=== PATIENT | male | born 1965 | race Caucasian/White ===

== ENCOUNTER 2022-09-08 10:36 | Outpatient (CLI) | payer OTHER, SELFPAY ==
[2022-09-08 19:14] LABS: Chloride* 105 mmol/L (96-114); Potassium* 4.7 mmol/L (3.6-5.1); Sodium* 140 mmol/L (135-149)
[2022-09-08 19:16] LABS: Carbon Dioxide* 28 mmol/L (20-32); Cholesterol* 227 mg/dL (90-199); Creatinine* 1.2 mg/dL (0.5-1.5); Estimated Glomerular Filt Rate 70 ml/min
[2022-09-08 19:17] LABS: Blood Urea Nitrogen* 19 mg/dL (7-30); Calcium* 9.3 mg/dL (8.4-10.6); Glucose* 96 mg/dL (60-115); HDL Cholesterol* 52 mg/dL (>=40); LDL Cholesterol Calculated 135 mg/dL (<100); Triglycerides* 202 mg/dL (40-149)
[2022-09-08 19:48] LABS: PSA Screen* 1.38 ng/mL (0.10-4.00)
== END 2022-09-08 10:37 | disposition home or self-care (01) ==
PROVIDERS: PCP Family Medicine; Visit Provider Family Medicine
DX: R39.11 Hesitancy of micturition (principal); Z13.6 Encounter for screening for cardiovascular disorders; Z13.0 Encounter for screening for diseases of the blood and blood-forming organs and certain disorders involving the immune mechanism; Z12.5 Encounter for screening for malignant neoplasm of prostate
CPT/HCPCS: 80048; 80061; 84153

== ENCOUNTER 2025-03-13 12:18 | Outpatient (CLI) | payer OTHER, SELFPAY ==
--- NOTE | 2025-03-20 10:33 | W.PM.SLEEP ---
Sleep Study Details Details Interpreting Provider: Levar Date of Sleep Study: 03/13/25 Sleep Study Details: STUDY TYPE:? Home unattended ? BMI:? 33 ORDERING PROVIDER:? Levar INDICATION:? Abnormal overnight oximetry study concern for sleep apnea ? SLEEP SUMMARY:? A 534 minutes total sleep time RESPIRATORY SUMMARY:? AHI 24.1 Low oxygen 86 0.5% of study oxygen less than 90% Snoring 94.5% PERIODIC LIMB MOVEMENTS OF SLEEP:? Not recorded CARDIAC:? Range 49-96, mean 58.7 beats per minute IMPRESSION:? Moderate obstructive sleep apnea RECOMMENDATION: Treatment options include CPAP, dental appliance and/or airway expansion surgery.
== END 2025-03-13 12:19 | disposition home or self-care (01) ==
PROVIDERS: PCP Family Medicine; Visit Provider Otolaryngology
DX: G47.33 Obstructive sleep apnea (adult) (pediatric) (principal)
CPT/HCPCS: 95806

== ENCOUNTER 2025-08-31 14:16 | Outpatient (CLI) | payer OTHER, SELFPAY | END 2025-08-31 14:17 | disposition home or self-care (01) | PROVIDERS: PCP Family Medicine; Visit Provider Family Medicine | DX: Z13.1 Encounter for screening for diabetes mellitus (principal); Z13.6 Encounter for screening for cardiovascular disorders; Z12.5 Encounter for screening for malignant neoplasm of prostate | CPT/HCPCS: 80048; 80061; G0103 ==

== ENCOUNTER 2025-09-18 09:28 | Outpatient (CLI) | payer OTHER, SELFPAY ==
--- NOTE | 2025-09-18 10:46 | P.ANES_ITS ---
Anesthesia Charges Start Date/Time Anesthesia Start Date: 09/18/25 Anesthesia Start Time: 10:15 Stop Date/Time Anesthesia Stop Date: 09/18/25 Anesthesia Stop Time: 10:45 Coding CPT Codes CPT Codes: LAURENT LWR INTST NDSC NOS - [id number] ([id number]) P2 - PATIENT W/MILD SYST DISEASE, QK - WELDING MACHINE OPERATOR PLASMA ARC 2-4 CNCRNT ANES PROC, QX - POULTRY OFFAL ICER SVC W/ MD MED DIRECTION
--- NOTE | 2025-09-18 10:46 | W.ANESCHARGE ---
Anesthesia Charges Start Date/Time Anesthesia Start Date: 09/18/25 Anesthesia Start Time: 10:15 Stop Date/Time Anesthesia Stop Date: 09/18/25 Anesthesia Stop Time: 10:45 Coding CPT Codes CPT Codes: LAURENT LWR INTST NDSC NOS - [id number] ([id number]) P2 - PATIENT W/MILD SYST DISEASE, QK - ENTERPRISE RESOURCE PLANNER 2-4 CNCRNT ANES PROC, QX - CAR UNLOADER HELPER SVC W/ MD MED DIRECTION
--- NOTE | 2025-09-18 11:35 | P.ANES_ITS ---
Anesthesia Charges Start Date/Time Anesthesia Start Date: 09/18/25 Anesthesia Start Time: 10:15 Stop Date/Time Anesthesia Stop Date: 09/18/25 Anesthesia Stop Time: 10:45 Coding CPT Codes CPT Codes: LAURENT LWR INTST NDSC NOS - [id number] ([id number]) QK - TRANSPORTATION MAINTENANCE SUPERVISOR 2-4 CNCRNT LAURENT PROC, QX - INSTRUCTIONAL SUPPORT SERVICES DIRECTOR SVC W/ MD MED DIRECTION, P2 - PATIENT W/MILD SYST DISEASE
--- NOTE | 2025-09-18 11:35 | W.ANESCHARGE ---
Anesthesia Charges Start Date/Time Anesthesia Start Date: 09/18/25 Anesthesia Start Time: 10:15 Stop Date/Time Anesthesia Stop Date: 09/18/25 Anesthesia Stop Time: 10:45 Coding CPT Codes CPT Codes: LAURENT LWR INTST NDSC NOS - [id number] ([id number]) QK - CREDIT SPECIALIST 2-4 CNCRNT LAURENT PROC, QX - MANAGER COMMISSION SVC W/ MD MED DIRECTION, P2 - PATIENT W/MILD SYST DISEASE
== END 2025-09-18 09:29 | disposition home or self-care (01) ==
LOC: OP CLINIC 09:28
PROVIDERS: PCP Family Medicine; Visit Provider Internal Medicine
DX: Z12.11 Encounter for screening for malignant neoplasm of colon (principal); Z12.5 Encounter for screening for malignant neoplasm of prostate
CPT/HCPCS: 00811; 00812; 45380; J2704